=== PATIENT | male | born 1995 | race African-American/Black ===

== ENCOUNTER 2023-12-09 17:39 | Emergency (ER) | payer MEDICAID ==
[~2023-12-09] VITALS: Ht 170.2 cm; Wt 62.2 kg
[2023-12-09 17:48] VITALS: BP 114/72; PULSE 95; RESP 20; TEMP 98.1; O2SAT 98
[2023-12-09] MEDS ORDERED: LIDOCAINE 2% 1000 MG/50 ML VIAL INJ ONE (19:37)
[2023-12-09] MEDS: LIDOCAINE 2% 1000 MG/50 ML VIAL INJ ONE (19:40)
[2023-12-09] MEDS: BACITRACIN OINT 500 UNITS/GM PKT TP ONE (19:40)
[2023-12-09] MEDS ORDERED: CEPH-588 PO (19:48)
[2023-12-09 20:11] VITALS: BP 114/72; PULSE 95; RESP 20; TEMP 98.1; O2SAT 98
== END 2023-12-09 20:12 | disposition home or self-care (01) ==
LOC: MED 17:39
DX: S51.811A Laceration without foreign body of right forearm, initial encounter (principal); Z79.899 Other long term (current) drug therapy; W26.0XXA Contact with knife, initial encounter; Y93.89 Activity, other specified; Y92.89 Other specified places as the place of occurrence of the external cause; Y99.8 Other external cause status
CPT/HCPCS: 12002; 90471; 90715; 99283; J2001